=== PATIENT | female | born 1990 | race Caucasian/White ===

== ENCOUNTER 2017-05-09 05:35 | Outpatient (CLI) | payer BC ==
[~2017-05-09] VITALS: Ht 160 cm; Wt 95.3 kg
[2017-05-09] MEDS ORDERED: CETI10TA20 PO (12:50)
== END 2017-05-09 13:38 ==
LOC: PREOP 05:35
PROVIDERS: ATTEND Otolaryngology Otolaryngology/Facial Plastic Surgery
DX: Z01.818 Encounter for other preprocedural examination (principal); J35.01 Chronic tonsillitis

== ENCOUNTER 2017-05-12 05:55 | Day surgery (SDC) | payer BC ==
[~2017-05-12] VITALS: Ht 160 cm; Wt 95.3 kg
[~2017-05-12 05:55] MED LIST: CETI10TA20 PO
[2017-05-12 06:30] VITALS: BP 122/77
[2017-05-12] MEDS ORDERED: LIDOCAINE PF 2% 5 ML (XYLOCAINE) VIAL ONE (06:48)
[2017-05-12] MEDS ORDERED: ONDANSETRON 4 MG/2 ML (SDV) Z0FRAN ONE (06:48)
[2017-05-12] MEDS ORDERED: PROPOFOL INJECTION 50 ML IV ONE (06:49)
[2017-05-12] MEDS ORDERED: SEVOFLURANE (ULTANE) 15 ML INHAL SOLN ONE ×3 (06:49→07:43)
[2017-05-12] MEDS ORDERED: MIDAZOLAM 2 MG/2 ML (VERSED) VIAL ONE (06:49)
[2017-05-12 06:50] LABS: BASOPHILS # (AUTO) 0.1 10^3/uL (0.0-0.1); BASOPHILS % (AUTO) 1 % (0-10); EOSINOPHILS # (AUTO) 0.1 10^3/uL (0.0-0.3); EOSINOPHILS % (AUTO) 2 % (0-10); LYMPHOCYTES # (AUTO) 2.2 X 10^3 (1.0-4.0); LYMPHOCYTES % (AUTO) 32 % (12-44); MEAN CORPUSCULAR HEMOGLOBIN 28 PG (25-34); MEAN CORPUSCULAR HGB CONC 34 G/DL (32-36); MEAN CORPUSCULAR VOLUME 84 FL (80-99); MEAN PLATELET VOLUME 8.3 FL (7.4-10.4); MONOCYTES # (AUTO) 0.7 X 10^3 (0.0-1.0); MONOCYTES % (AUTO) 11 % (0-12); NEUTROPHILS # (AUTO) 3.8 X 10^3 (1.8-7.8); NEUTROPHILS % (AUTO) 55 % (42-75); PLATELET COUNT 354 10^3/uL (130-400); RED BLOOD COUNT 4.23 10^6/uL (4.35-5.85); RED CELL DISTRIBUTION WIDTH 12.8 % (10.0-14.5); WHITE BLOOD COUNT 6.8 10^3/uL (4.3-11.0)
[2017-05-12] MEDS ORDERED: fentaNYL INJECTION 250 MCG/5 ML AMP ONE (06:50)
[2017-05-12] MEDS ORDERED: LACTATED RINGERS 1,000 ML IV PRN (06:50)
--- NOTE | 2017-05-12 06:55 | Progress Note-Pre Operative ---
Pre-Operative Progress Note H&P Reviewed The H&P was reviewed, patient examined and no changes noted. Date Seen by Provider: May 12, 2017 Time Seen by Provider: 06:40 Date H&P Reviewed: May 12, 2017 Time H&P Reviewed: 06:40 Pre-Operative Diagnosis: Chroic LefT Tonsillar hypertrophy with hx of prior tonsillectomy DAV HAJI MD May 12, 2017 6:55 am
[2017-05-12] MEDS ORDERED: NS IV 1000 ML 1,000 ML IV SCH (07:50)
--- NOTE | 2017-05-12 07:50 | Progress Note-Post Operative ---
Post-Operative Progess Note Surgeon (s)/Substance Abuse Technician (s) Surgeon DAV HAJI MD Substance Abuse Technician n/a Pre-Operative Diagnosis Chroic LefT Tonsillar hypertrophy with hx of prior tonsillectomy Post-Operative Diagnosis same Post-Op Procedure Note Date of Procedure: May 12, 2017 Name of Procedure Performed: Left Tonsillectomy Description & Findings Description and Findings: n/a Anesthesia Type get Estimated Blood Loss minimal Packing none. Specimen(s) collected/removed left tonsil tissue-sent fresh and will save some for flow cytometry if needed DAV HAJI MD May 12, 2017 7:50 am
[2017-05-12] MEDS ORDERED: HYDROcodone/APAP 7.5MG-325 MG/15 ML (LORTAB) UDC PO PRN (08:00)
[2017-05-12] MEDS ORDERED: APAP 325 MG/10.15 ML LIQ (TYLENOL) UDC PO PRN (08:00)
[2017-05-12] MEDS ORDERED: ONDANSETRON 4 MG/2 ML (SDV) Z0FRAN IVP PRN (08:15)
[2017-05-12] MEDS ORDERED: morphine INJ 10 MG/ML 1ML (SYR OR VIAL) IVP PRN (08:15)
[2017-05-12] MEDS ORDERED: MEPERIDINE (DEMEROL) INJ 50 MG/ML IVP PRN (08:15)
[2017-05-12 08:40] VITALS: BP 117/78
[2017-05-12 09:10] VITALS: BP 111/70
[2017-05-12] MEDS ORDERED: TETRACAINESUCKERS MT (09:14)
[2017-05-12] MEDS ORDERED: DEXAINTSOL PO (09:14)
[2017-05-12] MEDS ORDERED: HYDR118S10 PO (09:14)
[2017-05-12] MEDS ORDERED: AMOX250S5 PO (09:14)
[2017-05-12 09:40] VITALS: BP 105/70
--- OUTSIDE RECORDS SUMMARY | 2017-05-12 10:09 | XMS REPORT ---
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 Medications Active Name Start Date Estimated Completion Date SIG Comments clindamycin HCl 300 mg oral capsule 02/08/2017 02/18/2017 take 1 capsule (300 mg) by oral route 3 times per day for 10 days prednisone 20 mg oral tablet 02/08/2017 02/12/2017 take 1 tablet (20 mg) by oral route once daily x 4 days Discontinued Name Start Date Discontinued Date SIG Comments alprazolam 0.25 mg oral tablet 09/27/2016 02/08/2017 take 1 tablet (0.25 mg) before flight for anxiety PRN Problem List Not available. Vital Signs Date Time BP-Sys(mm[Hg] BP-Vannessa(mm[Hg]) HR(bpm) RR(rpm) Temp WT HT HC BMI BSA BMI Percentile O2 Sat(%) 02/08/2017 5:35:00 PM 104 mmHg 66 mmHg 90 bpm 20 rpm 99.1 F 228 lbs 63 in 40.39 kg/m2 2.14 m2 99 % 09/27/2016 5:50:00 PM 128 mmHg 98 mmHg 98 bpm 99 F 233 lbs 63 in 41.2737 kg/m 2.1674 m 98 % Social History Name Description Comments Tobacco Never smoker History of Procedures Not available. Results Summary Not available. History Of Immunizations Not available. History of Past Illness Name Date of Onset Comments PCOS (polycystic ovarian syndrome) Anxiety Sep 27 2016 5:54PM Fear of flying Sep 27 2016 5:54PM Tonsillitis Feb 08 2017 5:38PM Moderate Left Tonsillar abscess Feb 08 2017 5:38PM Payers Insurance Name Company Name Plan Name Plan Number Policy Number Policy Group Number Start Date [employer] [facility] [id number] N/A History of Encounters Visit Date Visit Type Provider 02/08/2017 Office visit Karen Tesfaye APRN 09/27/2016 Office visit Boni Lindquist APRN
--- OUTSIDE RECORDS SUMMARY | 2017-05-12 10:09 | XMS REPORT ---
Author Author Boni Lindquist [facility] Address [address] [place], [place] [id number] Care Team Providers Care Transit Manager Name Role Phone Boni Lindquist PCP Allergies and Adverse Reactions Name Reaction Notes No known drug allergy Plan of Treatment Not available. Medications Active Name Start Date Estimated Completion Date SIG Comments alprazolam 0.25 mg oral tablet 09/27/2016 take 1 tablet (0.25 mg) before flight for anxiety PRN Problem List Not available. Vital Signs Date Time BP-Sys(mm[Hg] BP-Vannessa(mm[Hg]) HR(bpm) RR(rpm) Temp WT HT HC BMI BSA BMI Percentile O2 Sat(%) 09/27/2016 5:50:00 PM 128 mmHg 98 mmHg 98 bpm 99 F 233 lbs 63 in 41.27 kg/m2 2.17 m2 98 % Social History Name Description Comments Tobacco Never smoker History of Procedures Not available. Results Summary Not available. History Of Immunizations Not available. History of Past Illness Name Date of Onset Comments PCOS (polycystic ovarian syndrome) Anxiety Sep 27 2016 5:54PM Fear of flying Sep 27 2016 5:54PM Payers Insurance Name Company Name Plan Name Plan Number Policy Number Policy Group Number Start Date [facility] [id number] N/A History of Encounters Visit Date Visit Type Provider 09/27/[address] Office visit Boni Lindquist [employer]
--- OUTSIDE RECORDS SUMMARY | 2017-05-12 10:09 | XMS REPORT | Continuity of Care Document ---
Author Author [facility] Address Unknown Phone Unavailable Allergies Medications Problems Procedures Results Encounters ACCT No. Visit Date/Time Discharge Status Pt. Type Provider Facility Loc./Unit Complaint [id number] 02/08/2017 18:09:05 ACT Outpatient Karen Tesfaye [id number] 09/27/2016 18:35:58 ACT Outpatient Boni Lindquist
== END 2017-05-12 10:48 | disposition home or self-care (01) ==
LOC: SDC 05:55
PROVIDERS: ATTEND Otolaryngology Otolaryngology/Facial Plastic Surgery
DX: J35.1 Hypertrophy of tonsils (principal)
CPT/HCPCS: 36415; 84703; 85025; 87081